=== PATIENT | male | born 2000 | race Hispanic/Latino ===

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

== ENCOUNTER 2019-06-04 23:36 | Emergency (ER) | payer MEDICAID, OTHER ==
[2019-06-05] MEDS ORDERED: ONDANSETRON ODT 4 MG TAB ONE (00:08)
[2019-06-05 00:48] LABS: APPEARANCE,URINE Clear (CLEAR); BILIRUBIN,URINE Negative (NEGATIVE); COLOR,URINE Yellow (YELLOW); GLUCOSE, URINE (UA) Negative (NEGATIVE); KETONES,URINE Negative (NEGATIVE); LEUKOCYTE ESTERASE ,URINE Negative (NEGATIVE); NITRATE,URINE Negative (NEGATIVE); OCCULT BLOOD,URINE Negative (NEGATIVE); PH,URINE 5.5 (5.0-8.0); PROTEIN,URINE Negative (NEGATIVE); UROBILINOGEN,URINE 0.2 mg/dL (0.2-1.0)
[2019-06-05 00:53] LABS: BASOPHILS % (AUTO) 0.6 % (0.0-5.0); EOSINOPHILS % (AUTO) 1.3 % (0.0-8.0); LYMPHOCYTES % (AUTO) 52.6 % (21.0-51.0); MEAN CORPUSCULAR HEMOGLOBIN 28.4 pg (27.0-33.0); MEAN CORPUSCULAR HGB CONC 32.6 g/dL (32.0-36.0); MEAN CORPUSCULAR VOLUME 87.2 fL (80-100); MONOCYTES % (AUTO) 8.6 % (3.0-13.0); NEUTROPHILS % (AUTO) 36.6 % (40.0-77.0); PLATELET COUNT (AUTO) 215 K/uL (130-400); RED BLOOD CELL COUNT(AUTO) 4.93 MIL/uL (4.50-6.20); RED CELL DISTRIBUTION WIDTH 12.7 % (11.0-15.5); WHITE BLOOD COUNT (AUTO) 9.8 K/uL (4.8-10.8)
[2019-06-05 01:01] LABS: CREATININE 0.9 mg/dL (0.5-1.5); POTASSIUM 4.3 mmol/L (3.5-5.1)
[2019-06-05 01:06] LABS: ALBUMIN 4.1 g/dL (3.5-5.0); BILIRUBIN,TOTAL 0.2 mg/dL (0.2-1.0); TOTAL PROTEIN, SERUM 7.5 g/dL (6.0-8.3)
[2019-06-05] MEDS ORDERED: LIDOCAINE HCL 2% VISCOUS 15 ML UDCUP ONE (01:29)
[2019-06-05] MEDS ORDERED: MAG HYDROX/AL HYDROX/SIMETH ES 30 ML SUSP UDCUP ONE (01:29)
== END 2019-06-05 01:52 | disposition home or self-care (01) ==
LOC: EDH 23:36
DX: K29.70 Gastritis, unspecified, without bleeding (principal)
CPT/HCPCS: 36415; 76705; 80053; 81003; 83690; 85025

== ENCOUNTER 2023-04-09 13:32 | Emergency (ER) | payer OTHER, SELFPAY ==
[~2023-04-09] VITALS: Ht 167.6 cm; Wt 72.1 kg
[2023-04-09 13:41] VITALS: BP 162/66; PULSE 56; RESP 17
[2023-04-09] MEDS ORDERED: IBUP-2070 PO (14:50)
[2023-04-09] MEDS ORDERED: CLIN-141 PO (14:50)
[2023-04-09] MEDS ORDERED: IBUPROFEN 600 MG TABLET PO ONE (15:00)
[2023-04-09] MEDS ORDERED: HYDROCODONE/ACETAMINOPHEN 5/325 MG TAB PO ONE (15:00)
[2023-04-09] MEDS ORDERED: CLINDAMYCIN 150 MG CAP PO ONE (15:00)
[2023-04-09] MEDS ORDERED: ONDANSETRON ODT 4MG TAB SL ONE (15:00)
== END 2023-04-09 15:50 | disposition home or self-care (01) ==
LOC: EDH 13:32
DX: K02.9 Dental caries, unspecified (principal)

== ENCOUNTER 2023-11-10 18:52 | Emergency (ER) | payer BC, OTHER ==
[~2023-11-10] VITALS: Ht 170.2 cm; Wt 69.9 kg
[2023-11-10 18:52] VITALS: BP 131/75; PULSE 98; RESP 16
[~2023-11-10 18:52] MED LIST: CLIN-141 PO; IBUP-2070 PO
[2023-11-10] MEDS ORDERED: IBUP-2077 PO (18:59)
[2023-11-10] MEDS ORDERED: CLIN-141 PO (18:59)
[2023-11-10] MEDS: IBUPROFEN 800 MG TAB PO ONE (19:19)
== END 2023-11-10 19:47 | disposition home or self-care (01) ==
LOC: EDH 18:52
DX: S02.5XXA Fracture of tooth (traumatic), initial encounter for closed fracture (principal); K02.9 Dental caries, unspecified; X58.XXXA Exposure to other specified factors, initial encounter; Y93.89 Activity, other specified; Y92.89 Other specified places as the place of occurrence of the external cause; Y99.8 Other external cause status

== ENCOUNTER 2024-04-29 18:30 | Emergency (ER) | payer SELFPAY ==
[~2024-04-29] VITALS: Ht 170.2 cm; Wt 67.1 kg
[~2024-04-29 18:30] MED LIST changes: +IBUP-2077 PO
[2024-04-29] MEDS: morPHINE 4 MG SYG IM ONE (19:15)
[2024-04-29] MEDS: DiphenhydrAMINE HCL 25 MG CAPSULE PO ONE (19:15)
[2024-04-29] MEDS: SILVER SULFADIAZINE CREAM 50 GM TP ONE (19:16)
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
[2024-04-29] MEDS: LIDOCAINE HCL 2% JELLY 5 ML TP SCH (20:07)
[2024-04-29] MEDS ORDERED: SILV50CR31 TP (21:28)
[2024-04-29 21:33] VITALS: BP 124/69; PULSE 87; RESP 18; TEMP 98.6; O2SAT 99
== END 2024-04-29 21:45 | disposition home or self-care (01) ==
LOC: EDH 18:30
DX: T22.10XA Burn of first degree of shoulder and upper limb, except wrist and hand, unspecified site, initial encounter (principal); T31.11 Burns involving 10-19% of body surface with 10-19% third degree burns; X08.8XXA Exposure to other specified smoke, fire and flames, initial encounter; Y93.89 Activity, other specified; Y92.89 Other specified places as the place of occurrence of the external cause; Y99.8 Other external cause status
CPT/HCPCS: 99283; 16000; 96372; Q0163; J2270